=== PATIENT | male | born 1975 | race Caucasian/White ===

== ENCOUNTER 2017-12-13 13:34 | Outpatient (CLI) | payer OTHER ==
--- NOTE | 2017-12-13 14:38 | Ultrasound Report ---
Procedure Date: 12/13/2017 Accession Number: [id number] / [id number] Procedure: US - Abdomen Limited CPT Code: FULL RESULT: EXAM: Abdomen Limited DATE: 12/13/2017 2:20 PM CLINICAL HISTORY: ELEVATED LFTS, RUQ ABD PAIN AFTER EATING TECHNIQUE: Grayscale and limited color Doppler ultrasound was performed. COMPARISON: None FINDINGS: Liver parenchyma appears possibly mildly echogenic which can be seen with parenchymal disease such as steatosis and limits examination for masses, however, no mass is seen. Portal venous flow is patent but limited color Doppler. The gallbladder appears unremarkable without evidence of sludge or calculi and is not distended. There is no pericholecystic fluid. The gallbladder wall measures up to 1.5 mm and there is no abnormal hyperemia or color Doppler. Note is made of focal fatty sparing around the gallbladder fossa in keeping with the aforementioned hepatic steatosis. There is no intra or extrahepatic biliary ductal dilation and the common bile duct measures up to 4 mm at the jeffrey hepatis, within normal limits. The right kidney measures up to 12.6 cm in maximal dimension shows no mass or hydronephrosis and there are no renal calculi. Parenchymal flow is preserved by color Doppler. The aorta was not adequately visualized. The IVC measures up to 1.4 cm in diameter. IMPRESSION: Hepatic steatosis without evidence of cholecystitis.
== END 2017-12-13 13:35 | disposition home or self-care (01) ==
LOC: DI 13:34
PROVIDERS: ATTEND Family Medicine
DX: K76.0 Fatty (change of) liver, not elsewhere classified (principal)
CPT/HCPCS: 76705

== ENCOUNTER 2021-07-16 10:57 | Outpatient (CLI) | payer OTHER ==
[2021-07-16 12:10] VITALS: BP 134/78
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
== END 2021-07-16 10:58 | disposition home or self-care (01) ==
LOC: SC 10:57
PROVIDERS: ATTEND Nurse Practitioner Family
DX: R06.83 Snoring (principal); G47.8 Other sleep disorders; G47.10 Hypersomnia, unspecified; R51.9 Headache, unspecified; R41.89 Other symptoms and signs involving cognitive functions and awareness; R06.81 Apnea, not elsewhere classified
CPT/HCPCS: 99203; 99212

== ENCOUNTER 2021-07-25 14:25 | Outpatient (CLI) | payer OTHER | END 2021-07-25 14:26 | disposition home or self-care (01) | LOC: SC 14:25 | PROVIDERS: ATTEND Nurse Practitioner Family | DX: G47.33 Obstructive sleep apnea (adult) (pediatric) (principal); R09.02 Hypoxemia | CPT/HCPCS: 95806 ==

== ENCOUNTER 2021-08-07 14:00 | Outpatient (CLI) | payer OTHER ==
--- NOTE | 2021-08-07 14:17 | SLEEP CARE CONSULTATION ---
Information from patient questionnaire entered by Davonte Dunn MA. I have reviewed and concur with the information entered by Davonte Dunn MA. This document represents the service I personally performed and the decisions made by , Marcia Andersen ARNP. History of Present Illness Service Date and Time: 08/07/2021 1400 Initial [place] Sleepiness Scale score: 12 (2021) Current [place] Sleepiness Scale score: 14 Additional HPI information: ANTONIETA MAYO returns via video Telehealth visit for follow up and results of the recently performed home sleep study. I explained the pathophysiology behind obstructive sleep apnea. We then spent quite a bit of time discussing different treatment options. For mild obstructive sleep apnea, surgery and oral appliance are alternatives to nasal CPAP therapy but in moderate or severe cases, nasal CPAP is the most effective and reliable treatment. Because apnea is primarily in supine position, then positional management therapy could be effective. Methods discussed such as positioning with pillows to prevent supine sleep. I reviewed the impact of weight changes on sleep apnea and strongly recommended losing weight. After some discussion, the patient opted to go with the nasal CPAP therapy. Nasal autoCPAP set at 4-15 cmH20 will be ordered with rationale explained. A manual titration study will be ordered if unable to find optimal pressure with office adjustments. I explained how CPAP machine works and what to expect when using the machine. Using CPAP every night in order to get used to it was emphasized. Patient advised to put CPAP mask on before getting into bed so as not to fall asleep without CPAP. To assist acclimation to CPAP use, it could also be used for a short time during day while reading or watching TV. The patient was instructed to call the CPAP supplier to discuss any mechanical problem that may occur. If the mask given is uncomfortable or is difficult to keep on through the night even with adjustment, contact the CPAP supplier as many will replace with another mask style if notified before 30 days. If snoring or perceives is not getting enough air or too much air from the machine, notify this office. Patient counseled not drink alcohol less than 4 hours before bedtime as it can increase snoring and apnea. Patient was cautioned about risks of drowsy driving until sleepiness symptoms resolve. Sleep Study - Results Type of Sleep Study: Home sleep study (F/U HOME STUDY) Prior sleep studies: Yes Year and Where: [facility], NOVEMBER 2011 Polysomnography/Home Sleep Study results: Physician Impression: The quality of the study is fair due to partial loss of airflow signal. The length of the study is adequate (> 240 minutes). Please also see the tabulated and graphic data. 1. Obstructive Sleep Apnea-Hypopnea (ICD-10 G47.33), severe, with an AHI of 35.5/hr and saima SaO2 of 80%. During the study, the patient had 143 apneas (143 obstructive, 0 central, 0 mixed) and 94 hypopneas. The longest episode lasted 110.0 seconds. The respiratory events occurred more frequently during supine sleep (supine AHI was 56.1 and non-supine, 14.07). 2. Hypoxemia (ICD-10 R09.02), moderate, with the lowest oxygen saturation of 80 % and 18.5 minutes with SaO2 under 90%. Baseline oxygen saturation was normal (Average oxygen saturation was 94%). Allergies and Home Medications Home medication list reviewed: Yes (no changes) Review of Systems Review of systems same as previous: Yes (no changes ) Physical Exam Vital signs obtained and entered by: Telehealth visit to reduce exposure during covid pandemic Height: 5 ft 10 in Impression and Plan 1. Obstructive Sleep Apnea-Hypopnea Syndrome, severe, with lowest oxygen saturation of 80%. Obviously this is the cause of the patients symptoms of unrefreshed sleep, and excessive daytime sleepiness. Positive pressure therapy could benefit borderline hypertension, anxiety, gastric reflux and insomnia. As mentioned above, the patient will be started on nasal autoCPAP therapy with pressure set at 4-15 cmH2O. Compliance guidelines also reviewed. A copy of compliance guidelines will be given for reference at check out. Because the apnea is more severe supine, I instructed to avoid sleeping supine using pillow positioning until able to start CPAP use. 2. Hypoxemia, moderate, with the lowest oxygen saturation of 80 % and 18.5 minutes with SaO2 under 90%. His baseline oxygen saturation was normal with an average oxygen saturation of 94%. * Nasal auto CPAP therapy, pressure at 4-15 cm H2O. * Attempt to lose weight. * Avoid alcohol consumption near bedtime. * Avoid supine sleep until using CPAP. * The patient is again cautioned about driving until sleepiness completely resolves. * Return one month after CPAP obtained. I will assess response to therapy and compliance at that time. Counseling Topics: Weight loss health impact Visit Type: Telehealth Video Video Type: VSee Patient Location: Home Location of Provider: Office Patient agrees and consents to this telehealth visit type: Yes Patient agrees to have their insurance billed: Yes Time Spent with Patient (minutes): 20 Provider Statement: I spent 100% of the Telehealth Video Call with the patient with greater than 50% spent counseling the patient and coordination of care.
== END 2021-08-07 14:01 | disposition home or self-care (01) ==
LOC: SC 14:00
PROVIDERS: ATTEND Nurse Practitioner Family
DX: G47.33 Obstructive sleep apnea (adult) (pediatric) (principal); R09.02 Hypoxemia

== ENCOUNTER 2021-12-02 11:06 | Outpatient (CLI) | payer OTHER ==
[2021-12-02 11:53] VITALS: BP 126/74
--- NOTE | 2021-12-02 11:53 | SLEEP CARE CONSULTATION ---
Information from patient questionnaire entered by Davonte Dunn MA. I have reviewed and concur with the information entered by Davonte Dunn MA. This document represents the service I personally performed and the decisions made by , Marcia Andersen ARNP. History of Present Illness Service Date and Time: 12/02/2021 1106 Previous diagnosis: Severe, Obstructive Sleep Apnea-Hypopnea Syndrome AHI: 35.5 (in 2021) Reason for follow up: other (6 WEEK F/U, PRESURE CHANGE, [place] 09/12/21 RESMED, ) Equipment type: CPAP Equipment obtained from: Other ([facility]; getting supplies) Mask style: Full face Mask brand: Respironics Backup mask available: Yes (old mask) Last cushion change: 1 month Prior sleep studies: Yes Year and Where: NOVEMBER 2011 Type of Sleep Study: Home sleep study (F/U HOME STUDY) HPI additional information: ANTONIETA MAYO was diagnosed to have severe, AHI 35.5, obstructive sleep apnea- hypopnea syndrome and returned today for CPAP therapy 6 week with pressure change follow-up. Sleep Study - Results Type of Sleep Study: Home sleep study (F/U HOME STUDY) Prior sleep studies: Yes Year and Where: NOVEMBER 2011 CPAP Compliance Data - Data Reviewed with Patient Average duration of nightly device use: 5 HOURS 58 MINUTES Compliance rate %: 100 (10/18/21-12/01/21; 45/45 days used) Current pressure setting (cmH2O): 11-15 Average residual AHI: 1.1 Central apnea: .2 Obstructive apnea: .1 Hypopnea: .4 Average large leak: 25.3 Subjective Patient concerns: reports: mask discomfort (hole under nose not big enough; getting a mask fitting for different full face), air blowing in eyes. denies: aerophagia, mask leak noise, condensation in mask/hose, nasal congestion, dry mouth, nose, throat, epistaxis, other Observed to snore while using device: No Current pressure setting perceived as: comfortable On therapy, patient: reports: sleeping better, more rested overall, other (teeth don't hurt like with mandibular advancement device). denies: drowsiness while driving Initial [place] Sleepiness Scale score: 12 (2021) Current [place] Sleepiness Scale score: 10 (12/02/2021) Allergies and Home Medications Known drug allergies: Yes (SULFA) Home medication list reviewed: Yes (no changes) Review of Systems Review of systems same as previous: Yes (no changes) Physical Exam Vital signs obtained and entered by: SHAMIKA COTTON Blood Pressure: 126/74 (RESP 18, PULSE 82, RIGHT, ) Cuff size: wrist Heart Rate: 63 O2 Saturation: 97 (CLOTH) Height: 5 ft 10 in Weight: 210 lb 3.2 oz (CLOTHES) Body Mass Index: 30.1 BMI Classification: Obese Impression and Plan 1. Obstructive Sleep Apnea-Hypopnea Syndrome, severe, with excellent treatment compliance and good apnea control. On CPAP therapy, the patient has better sleep quality and is more rested overall. Patient states the DreamWear full facemask that he has been using seems to have too small of a hole for his nostrils and he has difficulty breathing through it at times. He has made an appointment with [facility] for a mask fitting for a over the nose full face mask. He feels this would be a better mask choice. He will let me know if the pressure becomes uncomfortable with the mask change. Patient's apnea severity and rationale for treatment to reduce apnea, improve sleep quality and reduce cardiovascular and cerebrovascular events was reviewed. I also reviewed the benefit of consistent device use of CPAP for hypertension gastric reflux and anxiety. 2. Obesity, unspecified. Currently patients BMI is 30.1. Obesity increases the risk of apnea, CPAP pressure requirements and overall health risks especially cardiovascular and diabetes. Thus patient is advised to lose weight. Weight loss can be done with reducing portion size, reducing refined foods and balancing content with vegetables, fruit and whole grain foods. In addition, patient encouraged to get regular exercise. * Continue auto CPAP pressure at 11-15 cmH2O * Notify me if snoring with mask or feeling that the pressure is too much or too little * Attempt to lose weight * Call this office if any problems using CPAP * Return for follow up in 3 months, or sooner if concerns arise Counseling Topics: Spare mask, Weight loss health impact Visit Type: In Office Time Spent with Patient (minutes): 27 Provider Statement: I spent 100% of the Face to Face Visit with the patient with greater than 50% spent counseling the patient and coordination of care.
== END 2021-12-02 11:07 | disposition home or self-care (01) ==
LOC: SC 11:06
PROVIDERS: ATTEND Nurse Practitioner Family
DX: G47.33 Obstructive sleep apnea (adult) (pediatric) (principal); E66.9 Obesity, unspecified; Z68.30 Body mass index [BMI] 30.0-30.9, adult
CPT/HCPCS: 99212; 99213

== ENCOUNTER 2022-03-03 12:32 | Outpatient (CLI) | payer OTHER ==
--- NOTE | 2022-03-03 12:03 | SLEEP CARE CONSULTATION ---
Information from patient questionnaire entered by Mian Gruber. I have reviewed and concur with the information entered by Mian Gruber. This document represents the service I personally performed and the decisions made by , Marcia Andersen ARNP. History of Present Illness Service Date and Time: 03/03/2022 1140 Previous diagnosis: Severe, Obstructive Sleep Apnea-Hypopnea Syndrome AHI: 35.5 (in 2021) Reason for follow up: three month Equipment type: CPAP (RESMED) Equipment obtained from: Other ([facility]; getting supplies) Mask style: Full face Mask brand: [employer] (Vitera) Backup mask available: Yes (old mask) Last cushion change: 90 days Prior sleep studies: Yes Year and Where: NOVEMBER 2011 Type of Sleep Study: Home sleep study (F/U HOME STUDY) HPI additional information: ANTONIETA MAYO was diagnosed to have severe, AHI 35.5, obstructive sleep apnea- hypopnea syndrome and returns via video telehealth visit today for CPAP therapy three month follow-up. Sleep Study - Results Type of Sleep Study: Home sleep study (F/U HOME STUDY) Prior sleep studies: Yes Year and Where: NOVEMBER 2011 CPAP Compliance Data - Data Reviewed with Patient Average duration of nightly device use: 6 HOURS, 10 MINUTES Compliance rate %: 98 (12/02/21 TO 03/01/22; 88/90 days used) Current pressure setting (cmH2O): 11-15 (95th % at 11.2, max 11.4) Average residual AHI: 1.8 Central apnea: 0.0 Obstructive apnea: 0.0 Subjective Patient concerns: reports: aerophagia, dry mouth, nose, throat (dry mouth, dry throat occasionally), other (popping ears). denies: mask discomfort, air blowing in eyes, mask leak noise, condensation in mask/hose, nasal congestion, epistaxis Observed to snore while using device: No Current pressure setting perceived as: too high On therapy, patient: reports: sleeping better, awakening more refreshed, being more awake and alert during the day, more rested overall. denies: drowsiness while driving Initial [place] Sleepiness Scale score: 12 (2021) Current [place] Sleepiness Scale score: 12 (03/03/22) Allergies and Home Medications Home medication list reviewed: Yes (no changes) Review of Systems Review of systems same as previous: Yes (no changes) Physical Exam Vital signs obtained and entered by: VIA PHONE Height: 5 ft 10 in Weight: 206 lb (pt reported) Body Mass Index: 29.5 BMI Classification: Overweight Impression and Plan 1. Obstructive Sleep Apnea-Hypopnea Syndrome, severe, with good treatment compliance and good apnea control. On CPAP therapy, the patient has better sleep quality and is more rested overall. Patient has significant improvement of their sleep apnea and are satisfied with current CPAP therapy. Patient has been having some dry mouth and throat. He states he has been going through a full reservoir of water nearly every night. He has his humidity at 4 and I will increase to 5 to reduce dryness. Patient also feels that the pressure is too high at the beginning of the night and would like the initial ramp pressure reduced back to 4 cm H2O. I will make this change. I will also change his pressure setting to 10-11 cm H2O to reduce aerophagia. Patient has been experiencing increased burping and gas at current pressures.Patient will let me know if the change in pressure is uncomfortable or the elevation does not resolve. Patient's apnea severity and rationale for treatment to reduce apnea, improve sleep quality and reduce cardiovascular and cerebrovascular events was reviewed. I also reviewed the benefit of consistent device use of CPAP for hypertension, gastric reflux and anxiety. 2. Overweight, unspecified. Currently patients BMI is 29.5. Patient has been trying to watch what he eats and get regular exercise. He states he has lost a little bit of weight. Thus patient is advised to continue to try to lose weight. Weight loss can be done with reducing portion size, reducing refined foods and balancing content with vegetables, fruit and whole grain foods. In addition, patient encouraged to get regular exercise. * Change auto CPAP pressure to 10-11 cmH2O * Notify me if snoring with mask or feeling that the pressure is too much or too little * Attempt to lose weight * Call this office if any problems using CPAP * Return for follow up in 1 year, or sooner if concerns arise Counseling Topics: Spare mask, Weight loss health impact Visit Type: Telehealth Video ([phone]) Video Type: Doximity Patient Location: Home Location of Provider: Office Patient agrees and consents to this telehealth visit type: Yes Patient agrees to have their insurance billed: Yes Time Spent with Patient (minutes): 22 Provider Statement: I spent 100% of the Telehealth Video Call with the patient with greater than 50% spent counseling the patient and coordination of care.
== END 2022-03-03 12:33 | disposition home or self-care (01) ==
LOC: SC 12:32
PROVIDERS: ATTEND Nurse Practitioner Family
DX: G47.33 Obstructive sleep apnea (adult) (pediatric) (principal); E66.3 Overweight; Z68.29 Body mass index [BMI] 29.0-29.9, adult

== ENCOUNTER 2023-03-05 16:05 | Outpatient (CLI) | payer OTHER ==
--- NOTE | 2023-03-05 16:25 | Sleep Patient Instructions ---
Sleep Center Visit Summary - Patient Visit Information Reason for Visit: Annual visit for PAP therapy - Patient Instructions Additional Instructions: You will continue with CPAP therapy with pressure set at 10-11 cmH2O. A supply prescription will be updated with your DME. We encourage you to continue to try to lose weight. Please follow up with the sleep care office in 1 year. - Clinic Information Contact: [facility] [address] [place] [address] [email or web address] T: [phone]
--- NOTE | 2023-03-05 16:31 | SLEEP CARE CONSULTATION ---
Information from patient questionnaire entered by Magdalena Mcneil. I have reviewed and concur with the information entered by Magdalena Mcneil. This document represents the service I personally performed and the decisions made by me, Marcia Andersen ARNP. History of Present Illness Service Date and Time: 03/05/2023 1605 Previous diagnosis: Severe, Obstructive Sleep Apnea-Hypopnea Syndrome AHI: 35.5 (in 2021) Reason for follow up: annual (LAST SEEN 02/2022) Equipment type: CPAP (RESMED Airsense 11, s/u 08/2021) Equipment obtained from: Other ([facility]; getting supplies) Mask style: Full face (Vitera) Backup mask available: Yes (old mask) Last cushion change: monthly Prior sleep studies: Yes Year and Where: NOVEMBER 2011 Type of Sleep Study: Home sleep study (F/U HOME STUDY) HPI additional information: ANTONIETA MAYO was diagnosed to have severe, AHI 35.5, obstructive sleep apnea- hypopnea syndrome and returned today for CPAP therapy annual follow-up. Sleep Study - Results Type of Sleep Study: Home sleep study (F/U HOME STUDY) Prior sleep studies: Yes Year and Where: NOVEMBER 2011 CPAP Compliance Data - Data Reviewed with Patient Average duration of nightly device use: 5 HRS 51 MINS Compliance rate %: 94 (09/04/22-03/02/23; 179/180 days used) Current pressure setting (cmH2O): 10-11 Average residual AHI: 1.1 Central apnea: 0.2 Obstructive apnea: 0.2 Hypopnea: 0.3 Average large leak: 28.6 L/min Subjective Patient concerns: reports: mask discomfort, air blowing in eyes, dry mouth, nose, throat (dry mouth). denies: aerophagia, mask leak noise, condensation in mask/hose, nasal congestion, epistaxis Observed to snore while using device: No Current pressure setting perceived as: comfortable On therapy, patient: reports: sleeping better, awakening more refreshed, being more awake and alert during the day, more rested overall. denies: drowsiness while driving Initial [place] Sleepiness Scale score: 12 (2021) Current [place] Sleepiness Scale score: 13 (03/05/23) Allergies and Home Medications Known drug allergies: Yes (sulfa drugs) Drug allergies reviewed: Yes Home medication list reviewed: Yes (collagen supplement, stopped atorvastatin) Review of Systems Review of systems same as previous: Yes (NO CHANGE) Physical Exam Vital signs obtained and entered by: MAGDALENA Wright MA Blood Pressure: 128/74 (LEFT ARM) Cuff size: regular Heart Rate: 76 O2 Saturation: 98 Height: 5 ft 10 in Weight: 213 lb 6.4 oz Body Mass Index: 30.6 BMI Classification: Obese Impression and Plan 1. Obstructive Sleep Apnea-Hypopnea Syndrome, severe, with good treatment compliance and good apnea control. On CPAP therapy, the patient has better sleep quality and is more rested overall. Patient has significant improvement of their sleep apnea and is satisfied with current CPAP therapy. Patient denies problems with oral dryness, nasal congestion, epistaxis, skin irritation or aerophagia. He does have problem with the mask leaking into his eyes in the last 6 months. He states he is tightening his mask so much that it is hurting his face. I showed him the [employer] AirTouch F20 and fitted it to him with a large cushion and he felt it might work for him. I sent the sample home with him to try and if it works he can order more through his [employer] company. He voiced understanding. Patient's apnea severity and rationale for treatment to reduce apnea, improve sleep quality and reduce cardiovascular and cerebrovascular events was reviewed. I also reviewed the benefit of consistent device use of CPAP for hypertension, gastric reflux and anxiety. 2. Obesity, unspecified. Currently patients BMI is 30.6. Obesity increases the risk of apnea, CPAP pressure requirements and overall health risks especially cardiovascular and diabetes. Thus patient is advised to lose weight. * Continue auto CPAP pressure at 10-11 cmH2O * Update supply prescription * Notify me if snoring with mask or feeling that the pressure is too much or too little * Attempt to lose weight * Call this office if any problems using CPAP * Return for follow up in 1 year, or sooner if concerns arise Mask provided: Yes Counseling Topics: Spare mask, Weight loss health impact Prescriptions: Device supplies Follow up with Sleep Care in: 1 year Visit Type: In Office Time Spent with Patient (minutes): 23 Provider Statement: I spent 100% of the Face to Face Visit with the patient with greater than 50% spent counseling the patient and coordination of care.
[2023-03-05 17:08] VITALS: BP 128/74; O2SAT 98
== END 2023-03-05 16:06 | disposition home or self-care (01) ==
LOC: SC 16:05
PROVIDERS: ATTEND Nurse Practitioner Family
DX: G47.33 Obstructive sleep apnea (adult) (pediatric) (principal); E66.9 Obesity, unspecified; Z68.30 Body mass index [BMI] 30.0-30.9, adult
CPT/HCPCS: 99212; 99213